=== PATIENT | female | born 1970 | race Caucasian/White ===

== ENCOUNTER 2018-02-22 22:57 | Emergency (ER) | payer MEDICAID ==
[~2018-02-22] VITALS: Ht 165.1 cm; Wt 134.7 kg
[2018-02-22 23:26] VITALS: Ht 165.1 cm; Wt 134.7 kg
[2018-02-23 01:22] VITALS: BP 114/69
== END 2018-02-23 01:22 | disposition home or self-care (01) ==
LOC: ED 22:57
DX: L02.31 Cutaneous abscess of buttock (principal); M72.2 Plantar fascial fibromatosis; J45.909 Unspecified asthma, uncomplicated; M79.7 Fibromyalgia; Z88.0 Allergy status to penicillin; Z91.040 Latex allergy status
CPT/HCPCS: J1885; J2001